=== PATIENT | female | born 1980 | race Hispanic/Latino ===

== ENCOUNTER → 2018-05-14 | Outpatient (CLI) | payer OTHER ==
[~2018-05-14] MED LIST: ACHD5005 PO; IBP800T PO
--- NOTE | 2018-05-14 13:47 | Diagnostic Imaging Report ---
INDICATION: Dating. TECHNIQUE: Multiple real-time grayscale images were obtained over the gravid uterus. COMPARISON: None. FINDINGS: There is a single live fetus in a cephalic presentation. heart rate was recorded at 147 beats per minute. The placenta is anterior. Amniotic fluid volume is normal. No gross abnormalities are seen. Biometrical measurements are as follows: Biparietal 3.4 cm, age 16 weeks 3 days. Head circumference 12.9 cm, age 16 weeks 5 days. Abdominal circumference 10.5 cm, age 16 weeks 4 days. Femur length 2.0 cm, age 15 weeks 6 days. Sonographic estimate age: 16 weeks 3 days. Sonographic estimated date of delivery: 10/26/18. Estimated Weight: 148 gm (+/- 22 gm). LMP percentile: 21%. heart rate: 147 beats per minute. number: 1 of 1. IMPRESSION: Single live IUP of 16 weeks 3 days gestational age. The estimated date of confinement sonographically is 10/26/2018. Dictated by: Dictated on workstation # [id number]
== END ==
LOC: RAD 12:52
PROVIDERS: ATTEND Family Medicine
DX: Z34.92 Encounter for supervision of normal pregnancy, unspecified, second trimester (principal); Z3A.16 16 weeks gestation of pregnancy
CPT/HCPCS: 76805

== ENCOUNTER 2018-10-07 09:37 | Outpatient (CLI) | payer SELFPAY ==
[~2018-10-07] VITALS: Ht 157.5 cm; Wt 84.8 kg
[2018-10-07 09:59] VITALS: BP 119/79
== END 2018-10-07 10:00 | disposition home or self-care (01) ==
LOC: PREOP 09:37
PROVIDERS: ATTEND Obstetrics & Gynecology
DX: Z01.818 Encounter for other preprocedural examination (principal)
CPT/HCPCS: 87081

== ENCOUNTER 2018-10-14 06:10 | Inpatient (IN) | payer SELFPAY | END 2018-10-16 12:10 | disposition home or self-care (01) | LOC: LDRP 06:10 → WS 09:50 ==